=== PATIENT | female | born 1995 | race Hispanic/Latino ===

== ENCOUNTER 2023-07-29 14:35 | Emergency (ER) | payer OTHER ==
[~2023-07-29] VITALS: Ht 160 cm; Wt 95.3 kg
[2023-07-29 15:41] VITALS: BP 133/81; PULSE 85; RESP 18; O2SAT 99
[2023-07-29] MEDS ORDERED: ACETAMINOPHEN 500 MG TABLET ONE (15:49)
[2023-07-29] MEDS ORDERED: ACETAMINOPHEN 500 MG TABLET PO ONE (16:00)
== END 2023-07-29 15:53 | disposition home or self-care (01) ==
LOC: EDH 14:35
DX: S00.83XA Contusion of other part of head, initial encounter (principal); X58.XXXA Exposure to other specified factors, initial encounter; Y93.89 Activity, other specified; Y92.89 Other specified places as the place of occurrence of the external cause; Y99.8 Other external cause status
CPT/HCPCS: 99281; 99282

== ENCOUNTER 2024-06-21 23:24 | Emergency (ER) | payer OTHER ==
[~2024-06-21] VITALS: Ht 160 cm; Wt 93.4 kg
--- NOTE | 2024-06-21 23:26 | NUR ---
UA CUP PROVIDED
--- NOTE | 2024-06-21 23:30 | NUR ---
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
[2024-06-21 23:33] VITALS: BP 124/88; PULSE 66; RESP 20; TEMP 98; O2SAT 100
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
[2024-06-22] MEDS: ibuPROFEN 600 MG TABLET PO ONE (01:29)
--- NOTE | 2024-06-22 08:33 | HMCIMG ---
ELBOW COMP 3+VWS LT REASON: FALL TECHNIQUE: 3 views were obtained. FINDINGS: There is no evidence of fracture or dislocation. There is no joint effusion. The soft tissues appear unremarkable. There is no evidence of a radiopaque foreign body. IMPRESSION: No acute findings.
--- NOTE | 2024-06-22 08:34 | HMCIMG ---
SHOULDER COMP 2+VWS LT REASON: FALL TECHNIQUE: 2 views were obtained. FINDINGS: There is no evidence of fracture or dislocation. There is no joint effusion. The soft tissues appear unremarkable. There is no evidence of a radiopaque foreign body. IMPRESSION: No acute findings.
== END 2024-06-22 01:32 | disposition home or self-care (01) ==
LOC: EDH 23:24
DX: S59.902A Unspecified injury of left elbow, initial encounter (principal); E66.9 Obesity, unspecified; Z68.36 Body mass index [BMI] 36.0-36.9, adult; X58.XXXA Exposure to other specified factors, initial encounter; Y93.89 Activity, other specified; Y92.89 Other specified places as the place of occurrence of the external cause; Y99.8 Other external cause status
CPT/HCPCS: 73030; 73060; 73080; 81025; 99283; 99284